=== PATIENT | female | born 1980 ===

== ENCOUNTER 2016-12-17 21:34 | Emergency (ER) | payer MEDICAID ==
[2016-12-17 21:44] VITALS: BP 126/56; PULSE 82; RESP 18; TEMP 97.7; O2SAT 100
--- NOTE | 2016-12-17 23:15 | ED PDOC ---
HPI: Female Pain Time Seen by Provider: 12/17/16 21:47 Chief Complaint (Nursing): Female Genitourinary Chief Complaint (Provider): burning on urination x 2 days, lower back pain, bilateral History Per: Patient History/Exam Limitations: no limitations Onset/Duration Of Symptoms: Days Current Symptoms Are (Timing): Still Present Severity: Moderate Pain Scale Rating Of: 5 Quality Of Discomfort: Dull (Back ), Burning Associated Symptoms: denies: Fever, Chills, Nausea, Vomiting Alleviating Factors: None Additional Complaint(s): denies fever. Past Medical History Reviewed: Historical Data, Nursing Documentation, Vital Signs Vital Signs: Last Vital Signs Temp 97.7 F 12/17/16 21:39 Pulse 82 12/17/16 21:39 Resp 18 12/17/16 21:39 BP 126/56 L 12/17/16 21:39 Pulse Ox 100 12/17/16 21:39 - Medical History PMH: No Chronic Diseases - Surgical History Surgical History: No Surg Hx - Family History Family History: States: Unknown Family Hx - Living Arrangements Living Arrangements: With Family - Social History Current smoker - smoking cessation education provided: No Alcohol: None Drugs: Denies - Home Medications Home Medications: Ambulatory Orders Medication Instructions Recorded Erythromycin 0.5% [Erythromycin] 1 applic [employer] Q6 #1 tube 08/07/16 Ciprofloxacin [Cipro] 500 mg PO BID #10 tab 12/17/16 - Allergies Allergies/Adverse Reactions: Allergies Allergy/AdvReac Type Severity Reaction Status Date / Time No Known Allergies Allergy Verified 12/23/14 19:27 Review of Systems ROS Statement: Except As Marked, All Systems Reviewed And Found Negative Constitutional: Negative for: Fever, Chills Gastrointestinal: Negative for: Nausea, Vomiting Genitourinary Female: Positive for: Dysuria Physical Exam - Reviewed Nursing Documentation Reviewed: Yes Vital Signs Reviewed: Yes - Physical Exam Appears: Positive for: Well, Non-toxic, No Acute Distress Head Exam: Positive for: ATRAUMATIC, NORMAL INSPECTION, NORMOCEPHALIC Skin: Positive for: Normal Color, Warm, DRY Eye Exam: Positive for: Normal appearance ENT: Positive for: Normal ENT Inspection Neck: Positive for: Normal, Painless ROM Cardiovascular/Chest: Positive for: Regular Rate, Rhythm Respiratory: Positive for: CNT, Normal Breath Sounds Gastrointestinal/Abdominal: Positive for: Normal Exam, Bowel Sounds, Soft. Negative for: Tenderness Back: Positive for: Normal Inspection. Negative for: L CVA Tenderness, R CVA Tenderness Extremity: Positive for: Normal ROM Neurologic/Psych: Positive for: Alert, Oriented - ECG O2 Sat by Pulse Oximetry: 100 Medical Decision Making Medical Decision Making: (+) leuks Disposition - Clinical Impression Clinical Impression: UTI (urinary tract infection) - Patient ED Disposition Is Patient to be Admitted: No - Disposition Disposition: Routine/Home Disposition Time: 23:16 Condition: STABLE Prescriptions: Ciprofloxacin [Cipro] 500 mg PO BID #10 tab Instructions: Urinary Tract Infection in Women (ED)
== END 2016-12-17 23:15 | disposition home or self-care (01) ==
LOC: H.ER 21:34
DX: N39.0 Urinary tract infection, site not specified (principal)

== ENCOUNTER 2017-03-29 21:47 | Emergency (ER) | payer MEDICAID ==
[2017-03-29 22:00] VITALS: BP 105/65; PULSE 76; RESP 18; TEMP 96.7; O2SAT 99
--- NOTE | 2017-03-29 22:04 | ED PDOC ---
HPI: Female Pain Time Seen by Provider: 03/29/17 22:01 Chief Complaint (Nursing): Female Genitourinary Chief Complaint (Provider): dysuria History Per: Patient Additional Complaint(s): 36-year-old female presents to emergency Department with dysuria and frequency 3 days. No abdominal or back pain, no fever or chills. Patient has been taking cranberry pills and tylenol which has helped somewhat. No vaginal discharge or vaginal bleeding. Patient denies concern for STD. Past Medical History Reviewed: Historical Data, Nursing Documentation, Vital Signs Vital Signs: Last Vital Signs Temp 96.7 F L 03/29/17 21:57 Pulse 76 03/29/17 21:57 Resp 18 03/29/17 21:57 BP 105/65 03/29/17 21:57 Pulse Ox 99 03/29/17 21:57 - Medical History PMH: No Chronic Diseases - Surgical History Surgical History: No Surg Hx - Family History Family History: States: No Known Family Hx - Living Arrangements Living Arrangements: With Family - Social History Current smoker - smoking cessation education provided: No Alcohol: None Drugs: Denies - Home Medications Home Medications: Ambulatory Orders Medication Instructions Recorded Erythromycin 0.5% [Erythromycin] 1 applic [employer]EYE Q6 #1 tube 08/07/16 Ciprofloxacin [Cipro] 500 mg PO BID #10 tab 12/17/16 Nitrofurantoin Macrocrystals 100 mg PO BID #14 cap 03/29/17 [Macrobid] - Allergies Allergies/Adverse Reactions: Allergies Allergy/AdvReac Type Severity Reaction Status Date / Time No Known Allergies Allergy Verified 12/23/14 19:27 Review of Systems ROS Statement: Except As Marked, All Systems Reviewed And Found Negative Constitutional: Negative for: Fever, Chills Gastrointestinal: Negative for: Abdominal Pain Genitourinary Female: Positive for: Dysuria, Frequency, Incontinence. Negative for: Hematuria, Vaginal Discharge, Vaginal Bleeding, Pelvic Pain Musculoskeletal: Negative for: Back Pain Physical Exam - Reviewed Nursing Documentation Reviewed: Yes Vital Signs Reviewed: Yes - Physical Exam Appears: Positive for: Well, Non-toxic, No Acute Distress Skin: Negative for: Rash Eye Exam: Positive for: Normal appearance Cardiovascular/Chest: Positive for: Regular Rate, Rhythm Respiratory: Positive for: Normal Breath Sounds Gastrointestinal/Abdominal: Positive for: Soft. Negative for: Tenderness, Distended, Guarding, Rebound Back: Positive for: Normal Inspection. Negative for: L CVA Tenderness, R CVA Tenderness, Vertebral Tenderness Extremity: Positive for: Normal ROM Neurologic/Psych: Positive for: Alert, Oriented - Laboratory Results Urine POC: Negative Urine dip results: Positive for: Leukocyte Esterase (small). Negative for: Blood, Nitrate, Ketones, Glucose, Bilirubin, Protein - ECG O2 Sat by Pulse Oximetry: 99 Pulse Ox Interpretation: Normal Medical Decision Making Medical Decision Makin36 year old with dysuria and frequency Plan: Urine dip Urine test Urine culture UTI noted, initial dose macrobid given in ED along with rx for same. Patient advised to drink plenty of fluids and follow up with PMD in 2-3 days. Disposition - Clinical Impression Clinical Impression: Urinary tract infection - Patient ED Disposition Is Patient to be Admitted: No Counseled Patient/Family Regarding: Studies Performed, Diagnosis, Need For Followup, Rx Given - Disposition Referrals: [facility] [Outside] Disposition: Routine/Home Disposition Time: 22:13 Condition: STABLE Additional Instructions: Take rx meds as directed. Drink plenty of fluids. Follow up with primary care doctor or clinic in 2-3 days. Prescriptions: Nitrofurantoin Macrocrystals [Macrobid] 100 mg PO BID #14 cap Instructions: Urinary Tract Infection in Women (ED) Forms: [employer] (Armenian)
== END 2017-03-29 23:46 | disposition home or self-care (01) ==
LOC: H.ER 21:47
DX: N39.0 Urinary tract infection, site not specified (principal)

== ENCOUNTER 2017-08-18 16:42 | Emergency (ER) | payer MEDICAID ==
[2017-08-18 16:57] VITALS: BP 100/58; PULSE 87; RESP 16; TEMP 98.2; O2SAT 99
--- NOTE | 2017-08-18 18:07 | ED PDOC ---
HPI: Back Time Seen by Provider: 08/18/17 17:12 Chief Complaint (Nursing): Female Genitourinary Chief Complaint (Provider): Female Genitourinary and Lower Back Pain History Per: Patient History/Exam Limitations: no limitations Onset/Duration Of Symptoms: Days (x4) Current Symptoms Are (Timing): Still Present Additional Complaint(s): 37 year of female with a past medical history of UTIs, who presents to the ED complaining of lower back pain and urinary problems x4 days. States her back pain began 4 days ago, but her urinary symptoms began yesterday. States she has dysuria and small amounts of blood in her urine. States she has taken nothing for pain. Denies fever or vomit. Reports being sexually active. PMD: None provided Past Medical History Reviewed: Historical Data, Nursing Documentation, Vital Signs Vital Signs: Last Vital Signs Temp 98.2 F 08/18/17 16:55 Pulse 87 08/18/17 16:55 Resp 16 08/18/17 16:55 BP 100/58 L 08/18/17 16:55 Pulse Ox 99 08/18/17 16:55 - Medical History Other PMH: UTI - Surgical History Surgical History: No Surg Hx - Family History Family History: States: Unknown Family Hx - Home Medications Home Medications: Ambulatory Orders Medication Instructions Recorded Erythromycin 0.5% [Erythromycin] 1 applic [employer]YE Q6 #1 tube 08/07/16 Ciprofloxacin [Cipro] 500 mg PO BID #10 tab 12/17/16 Nitrofurantoin Macrocrystals 100 mg PO BID #14 cap 03/29/17 [Macrobid] - Allergies Allergies/Adverse Reactions: Allergies Allergy/AdvReac Type Severity Reaction Status Date / Time No Known Allergies Allergy Verified 12/23/14 19:27 Review of Systems ROS Statement: Except As Marked, All Systems Reviewed And Found Negative Constitutional: Negative for: Fever, Chills Gastrointestinal: Negative for: Vomiting Genitourinary Female: Positive for: Dysuria, Hematuria Musculoskeletal: Positive for: Back Pain Physical Exam - Reviewed Nursing Documentation Reviewed: Yes Vital Signs Reviewed: Yes - Physical Exam Appears: Positive for: Non-toxic, No Acute Distress Head Exam: Positive for: ATRAUMATIC, NORMAL INSPECTION, NORMOCEPHALIC Skin: Positive for: Normal Color, Warm, Dry. Negative for: Rash Eye Exam: Positive for: EOMI, Normal appearance, PERRL Neck: Positive for: Normal, Painless ROM, Supple Cardiovascular/Chest: Positive for: Regular Rate, Rhythm. Negative for: Murmur Respiratory: Positive for: Normal Breath Sounds. Negative for: Respiratory Distress Gastrointestinal/Abdominal: Positive for: Tenderness (mild suprapubic tenderness ) Back: Positive for: Normal Inspection. Negative for: L CVA Tenderness, R CVA Tenderness, Vertebral Tenderness Extremity: Positive for: Normal ROM. Negative for: Pedal Edema, Deformity Neurologic/Psych: Positive for: Alert, Oriented (x3). Negative for: Motor/ Sensory Deficits - ECG O2 Sat by Pulse Oximetry: 99 (RA) Pulse Ox Interpretation: Normal Medical Decision Making Medical Decision Making: Time: 17 Initial Impression: UTI, cystitis Initial Plan: --ED test --Reevaluation --Patient will be discharged with Macrobid and advised to follow up with PMD. Scribe Attestation: Documented by Indra Garcia, acting as a scribe for Danette Santana MD. Provider Scribe Attestation: All medical record entries made by the Scribe were at my direction and personally dictated by me. I have reviewed the chart and agree that the record accurately reflects my personal performance of the history, physical exam, medical decision making, and the department course for this patient. I have also personally directed, reviewed, and agree with the discharge instructions and disposition. Disposition - Clinical Impression Clinical Impression: Low back pain, Urinary tract infection - Patient ED Disposition Is Patient to be Admitted: No Counseled Patient/Family Regarding: Studies Performed, Diagnosis, Need For Followup, Rx Given - Disposition Referrals: [facility] [Outside] Disposition: Routine/Home Disposition Time: 17:30 Condition: GOOD Additional Instructions: Take motrin for back pain. Take macrobid for 7 days./ Follow up w3ith your PCP in 2-3 days. Instructions: Urinary Tract Infections in Adults
== END 2017-08-18 19:04 | disposition home or self-care (01) ==
LOC: H.ER 16:42
DX: M54.5 Low back pain (principal); N39.0 Urinary tract infection, site not specified

== ENCOUNTER 2018-01-02 20:05 | Emergency (ER) | payer MEDICAID ==
[2018-01-02 20:27] VITALS: BP 102/60; PULSE 77; RESP 17; TEMP 98.6; O2SAT 99
[2018-01-02 21:19] LABS: BASO % 0.3 % (0.0-2.0); EOS # 0.1 K/uL (0.0-0.7); EOS % 0.6 % (0.0-4.0); HEMOGLOBIN 13.8 g/dL (12.0-16.0); LYMPH # 2.1 K/uL (1.0-4.3); LYMPH % 21.6 % (20.0-40.0); MEAN CELL VOLUME 90.5 fl (81.0-99.0); MEAN CORPUSCULAR HEMOGLOBIN 30.4 pg (27.0-31.0); MEAN CORPUSCULAR HGB CONC 33.6 g/dL (33.0-37.0); MONO # 0.9 K/uL (0.0-0.8); MONO % 8.7 % (0.0-10.0); NEUT # 6.7 K/uL (1.8-7.0); NEUT % 68.8 % (50.0-75.0); RBC 4.54 Mil/uL (3.80-5.20); WHITE BLOOD COUNT 9.8 K/uL (4.8-10.8)
[2018-01-02 21:28] LABS: ALB/GLOB RATIO 1.4 (1.0-2.1); ALBUMIN 4.5 g/dL (3.5-5.0); ALT/SGPT 36 U/L (9-52); AST/SGOT 32 U/L (14-36); BLOOD UREA NITROGEN 14 mg/dl (7-17); CALCIUM 9.8 mg/dL (8.4-10.2); GFR AFRICAN-AMERICAN > 60; GFR NON-AFRICAN AMERICAN > 60
--- NOTE | 2018-01-02 21:33 | ED PDOC ---
HPI: Chest Pain Time Seen by Provider: 01/02/18 20:34 Chief Complaint (Nursing): Chest Pain Chief Complaint (Provider): Chest pain History Per: Patient History/Exam Limitations: no limitations Onset/Duration Of Symptoms: Days (2) Current Symptoms Are (Timing): Still Present Quality: "Pain" Additional History Per: Patient Additional Complaint(s): 37yo female, no known past medical history, comes to ER with complaints of acute onset left sided chest pain, radiating to her left arm, x 2 days. Patient denies any associated nausea, vomiting, diarrhea, or diaphoresis. Patient states the pain is worse with inspiration and at times, she has shortness of breath as well. Otherwise, she offers no other medical complaints PMD: Bert Olsen Past Medical History Reviewed: Historical Data, Nursing Documentation, Vital Signs Vital Signs: Last Vital Signs Temp 98.6 F 01/02/18 20:19 Pulse 77 01/03/18 00:01 Resp 17 01/02/18 20:19 BP 102/60 01/02/18 20:19 Pulse Ox 99 01/03/18 00:01 - Medical History PMH: No Chronic Diseases - Surgical History Surgical History: No Surg Hx - Family History Family History: States: Unknown Family Hx - Home Medications Home Medications: Ambulatory Orders Medication Instructions Recorded Erythromycin 0.5% [Erythromycin] 1 applic [employer] Q6 #1 tube 08/07/16 Ciprofloxacin [Cipro] 500 mg PO BID #10 tab 12/17/16 Nitrofurantoin Macrocrystals 100 mg PO BID #14 cap 03/29/17 [Macrobid] Nitrofurantoin Macrocrystals 100 mg PO BID #14 cap 08/18/17 [Macrobid] Naproxen [Naprosyn] 500 mg PO Q12 #14 tab 01/02/18 - Allergies Allergies/Adverse Reactions: Allergies Allergy/AdvReac Type Severity Reaction Status Date / Time No Known Allergies Allergy Verified 12/23/14 19:27 Review of Systems ROS Statement: Except As Marked, All Systems Reviewed And Found Negative Constitutional: Negative for: Fever, Chills Cardiovascular: Positive for: Chest Pain Respiratory: Positive for: Shortness of Breath Musculoskeletal: Positive for: Arm Pain (left arm pain) Neurological: Negative for: Weakness, Numbness Physical Exam - Reviewed Nursing Documentation Reviewed: Yes Vital Signs Reviewed: Yes - Physical Exam Appears: Positive for: Well, Non-toxic, No Acute Distress Head Exam: Positive for: ATRAUMATIC, NORMAL INSPECTION, NORMOCEPHALIC Skin: Positive for: Normal Color Eye Exam: Positive for: Normal appearance Neck: Positive for: Normal, Supple Cardiovascular/Chest: Positive for: Regular Rate, Rhythm, Chest Non Tender Respiratory: Positive for: Normal Breath Sounds Gastrointestinal/Abdominal: Positive for: Normal Exam, Soft. Negative for: Tenderness Back: Positive for: Normal Inspection Extremity: Positive for: Normal ROM. Negative for: Pedal Edema Neurologic/Psych: Positive for: Alert, Oriented. Negative for: Motor/Sensory Deficits - Laboratory Results Result Diagrams: 01/02/18 21:13 01/02/18 21:13 - ECG ECG: Positive for: Interpreted By Me, Viewed By Me ECG Rhythm: Positive for: Normal QRS, Normal ST Segment, Sinus Rhythm Rate: 77 (@ 20:32) O2 Sat by Pulse Oximetry: 99 (RA) Pulse Ox Interpretation: Normal Medical Decision Making Medical Decision Making: Impression: 37yo female with chest pain Plan: -- Labs -- EKG -- Chest x-ray -- Toradol 15mg IVP CT chest angio ordered due to elevated D Dimer levels. 23:45 CT Chest FINDINGS: Pulmonary arteries: Unremarkable. No filling defects are appreciated within the pulmonary arteries to suggest the presence of pulmonary emboli. Aorta: No acute findings. No thoracic aortic aneurysm. Lungs: Mild bibasilar dependent change/atelectasis. No mass. Pleural space: Unremarkable. No significant effusion. No pneumothorax. Heart: Unremarkable. No cardiomegaly. No significant pericardial effusion. No evidence of RV dysfunction. Bones/joints: No acute fracture. No dislocation. Soft tissues: Unremarkable. Lymph nodes: Unremarkable. No enlarged lymph nodes. IMPRESSION: No filling defects are appreciated within the pulmonary arteries to suggest the presence of pulmonary emboli. 00:00 --Patient reports improvement of symptoms and is stable for discharge. Diagnosis is pleuritic chest pain. Scribe Attestation: Documented by Martha Sigala, acting as a scribe for Gerardo Damon MD. Provider Scribe Attestation: All medical record entries made by the Scribe were at my direction and personally dictated by me. I have reviewed the chart and agree that the record accurately reflects my personal performance of the history, physical exam, medical decision making, and the department course for this patient. I have also personally directed, reviewed, and agree with the discharge instructions and disposition. Disposition - Clinical Impression Clinical Impression: Pleuritic chest pain - Patient ED Disposition Is Patient to be Admitted: No Counseled Patient/Family Regarding: Studies Performed, Diagnosis, Need For Followup, Rx Given - Disposition Disposition: Routine/Home Disposition Time: 00:00 Condition: STABLE Additional Instructions: ROSENDO MARTINEZ, thank you for letting us take care of you today. Your provider was Gerardo Damon MD and you were treated for ABD PAIN. The emergency medical care you received today was directed at your acute symptoms. If you were prescribed any medication, please fill it and take as directed. It may take several days for your symptoms to resolve. Return to the Emergency Department if your symptoms worsen, do not improve, or if you have any other problems. Please contact your doctor or call one of the physicians/clinics you have been referred to that are listed on the Patient Visit Information form that is included in your discharge packet. Bring any paperwork you were given at discharge with you along with any medications you are taking to your follow up visit. Our treatment cannot replace ongoing medical care by a primary care provider outside of the emergency department. Thank you for allowing the [facility] team to be part of your care today. If you had an X-Ray or CT scan: A Radiologist will review the ED reading if any change in treatment is needed we will contact you. If you had a blood, urine, or wound culture: It will take several days for the results, if any change in treatment is needed we will contact you. If you had an STI test: It will take 48 hours for the results. Please call after 1 week if you have not heard back. Prescriptions: Naproxen [Naprosyn] 500 mg PO Q12 #14 tab Instructions: Pleuritic Chest Pain Forms: [employer] (Botswanan) Print Language: TURKISH
[2018-01-02] MEDS ORDERED: Iodixanol 320 MG/ML 100 ML BOTTLE IV ONE (22:41)
--- NOTE | 2018-01-03 09:47 | CT ---
Date of service: 01/02/2018 PROCEDURE: CT Chest with contrast (Pulmonary Angiogram) HISTORY: chest pain r/o PE COMPARISON: None available. TECHNIQUE: Axial computed tomography images were obtained of the chest in the pulmonary arterial phase of enhancement. Coronal and sagittal reformatted images were created and reviewed. Maximum intensity projection (MIP) reconstructed images in the following planes: Axial only. Intravenous contrast dose: 80 cc Visipaque 320. Mean Hounsfield unit values in the main pulmonary artery: 391.28 Radiation dose: Total exam DLP = 244.76 mGy-cm. This CT exam was performed using one or more of the following dose reduction techniques: Automated exposure control, adjustment of the mA and/or kV according to patient size, and/or use of iterative reconstruction technique. FINDINGS: PULMONARY ARTERIES: Unremarkable. No pulmonary embolism. AORTA: No acute findings. No thoracic aortic aneurysm. LUNGS: Unremarkable. No nodule, mass or pulmonary consolidation. PLEURAL SPACES: Unremarkable. No effusion or pneumothorax. HEART: Unremarkable. No cardiomegaly. No significant pericardial effusion. LYMPH NODES: No lymphadenopathy. BONES, CHEST WALL: Unremarkable. No fracture or destructive lesion Concordant results (preliminary interpretation) provided by [employer]. Procedure Completed: 22:57. Preliminary ([employer]) Report: Dictated and Authenticated: 23:48. Final Interpretation: 09:46. January 03, 2018. OTHER FINDINGS: Unremarkable. IMPRESSION: Unremarkable CT pulmonary angiogram. No pulmonary embolus.
--- NOTE | 2018-01-03 10:37 | RAD ---
Date of service: 01/02/2018 HISTORY: chest pain COMPARISON: No prior. TECHNIQUE: Chest PA and lateral FINDINGS: LUNGS: No active pulmonary disease. PLEURA: No significant pleural effusion identified. No pneumothorax apparent. CARDIOVASCULAR: Normal. OSSEOUS STRUCTURES: No significant abnormalities. VISUALIZED UPPER ABDOMEN: Normal. OTHER FINDINGS: None. IMPRESSION: No acute cardiopulmonary disease appreciated.
--- NOTE | 2018-01-03 12:33 | CARD ---
APPROVED REPORT Date of service: 01/02/2018 EKG Measurement Heart [id number] [id number] [id number] <Conclusion> Normal sinus rhythm Normal ECG
== END 2018-01-03 00:25 | disposition home or self-care (01) ==
LOC: H.ER 20:05
DX: R07.81 Pleurodynia (principal)
CPT/HCPCS: 71046; 71275; 80053; 81025; 84484; 85025; 85378; 93005; 96374; 99283; J1885; Q9967

== ENCOUNTER 2018-07-12 19:56 | Emergency (ER) | payer MEDICAID ==
[2018-07-12 20:07] VITALS: RESP 16
[2018-07-12] MEDS ORDERED: guaiFENesin 200 mg/10 ml Syrup UD PO STA (20:25)
[2018-07-12] MEDS ORDERED: guaiFENesin 100 mg/5 ml Syrup UD ONE (20:47)
--- NOTE | 2018-07-12 20:52 | ED PDOC ---
HPI: Influenza Time Seen by Provider: 07/12/18 20:08 Chief Complaint: Flu-like Symptoms Chief Complaint (Provider): Flu-like Symptoms History Per: Patient Exam Limitations: no limitations Have you had recent travel within the past 21 days to any of: No Onset/Duration Of Symptoms: Days (x5), Worse Since (x2) Sick Contacts (Context): None Additional complaint(s):: Patient is a 38 y/o female with no significant past medical history who presents to the ED for evaluation of body aches for the past five days associated with a tactile fever, congestion, chills, bilateral ear pressure, cough, and throat pain ongoing x1.5 days. Patient states she did not take her temperature but felt warm. Patient reports she took 500mg of Tylenol at 16:00. Patient denies recent travel, sick contacts, N/V/D, chest pain, abdominal pain, rash, and urinary symptoms. PCP: Dr. Bert Olsen LMP: Now Past Medical History Reviewed: Historical Data, Nursing Documentation, Vital Signs Vital Signs: Last Vital Signs Temp 98 F 07/12/18 20:04 Pulse 90 07/12/18 20:04 Resp 16 07/12/18 20:04 BP 97/65 L 07/12/18 20:04 Pulse Ox 99 07/12/18 20:04 - Medical History PMH: No Chronic Diseases - Surgical History Surgical History: No Surg Hx - Family History Family History: States: Unknown Family Hx - Home Medications Home Medications: Ambulatory Orders Medication Instructions Recorded RX: Erythromycin 0.5% 1 applic RIGHTEYE Q6 #1 tube 08/07/16 [Erythromycin] Ciprofloxacin [Cipro] 500 mg PO BID #10 tab 12/17/16 Nitrofurantoin Macrocrystals 100 mg PO BID #14 cap 03/29/17 [Macrobid] Nitrofurantoin Macrocrystals 100 mg PO BID #14 cap 08/18/17 [Macrobid] Naproxen [Naprosyn] 500 mg PO Q12 #14 tab 01/02/18 Acetaminophen [Acetaminophen 8 650 mg PO Q8 PRN #21 tablet.er 07/12/18 Hour] Oseltamivir Phosphate [Tamiflu] 75 mg PO BID #10 capsule 07/12/18 Phenylephrine HCl/Prometh HCl 5 ml PO Q6 PRN #150 ml 07/12/18 [Promethazine-Phenylephrine Syr] RX: Ibuprofen [Motrin Tab] 600 mg PO Q6 PRN #20 tab 07/12/18 - Allergies Allergies/Adverse Reactions: Allergies Allergy/AdvReac Type Severity Reaction Status Date / Time No Known Allergies Allergy Verified 07/12/18 20:03 Review of Systems ROS Statement: Except As Marked, All Systems Reviewed And Found Negative Constitutional: Positive for: Fever (tactile), Chills, Other (body aches) ENT: Positive for: Ear Pain (bilateral pressure), Nose Congestion, Throat Pain Cardiovascular: Negative for: Chest Pain Respiratory: Positive for: Cough Gastrointestinal: Negative for: Nausea, Vomiting, Abdominal Pain, Diarrhea Genitourinary Female: Negative for: Dysuria, Hematuria Skin: Negative for: Rash Physical Exam - Reviewed Nursing Documentation Reviewed: Yes Vital Signs Reviewed: Yes - Physical Exam Comments: GENERAL APPEARANCE: Patient is awake, alert, oriented x 3, in no acute distress. Resting comfortably, on cell phone. SKIN: Warm, dry; (-) cyanosis. EYES: (-) conjunctival pallor, (-) scleral icterus. ENMT: Mucous membranes moist. TM: (-) bulging, (-) erythema. Pharynx: clear, uvula midline (+) mild erythema, (-) exudates (+)2+ tonsilar hypertrophy. (-) sinus tenderness. NECK: Supple, FROM (-) tenderness, (-) stiffness, (-) lymphadenopathy. CHEST AND RESPIRATORY: (-) rales, (-) rhonchi, (-) wheezes; breath sounds equal bilaterally. Respirations even and nonlabored. HEART AND CARDIOVASCULAR: (-) irregularity ABDOMEN AND GI: Soft (-) distention (-) tenderness (-) guarding, (-) rebound EXTREMITIES: (-) deformity NEURO AND PSYCH: Mental status as above; (-) focal findings. Gait: steady. Speech: clear. (-) facial asymmetry (-) aphasia. Pupils equal and reactive. EOMI and painless. Medical Decision Making Medical Decision Making: Time: 2024 Impression: Body aches, cough, congestion, and throat pain; likely viral syndrome Plan: Chest Two Views (PA/Lat) [Rad] Motrin Tab 600 mg PO Robitussin 200 mg PO Throat Culture Influenza A B Rapid Strep Group A Antigen Re-evaluation 2200 Rapid Strep: negative Flu: (+) . Tamiflu 100mg PO ordered. CXR: no acute disease as read by Gal FULLER On re-evaluation, patient reports improvement of symptoms. On exam, patient remains AAOx3, in no acute distress. Vitals stable. Lab/Diagnostic results d/w the patient in great detail. Diagnosis of body aches, cough, throat pain, influenza d/w the patient. Based on history, exam and diagnostic results, plan will be for outpatient follow up with PMD. Patient instructed to follow-up with pmd / referral provided / the clinic in 1- 2 days without fail. Advised to take medication as prescribed. Return to the emergency room at any time for any new or worsening symptoms. Patient states she fully agrees with and understands discharge instructions. States that she agrees with the plan and disposition. Verbalized and repeated discharge instructions and plan. I have given the patient opportunity to ask any additional questions. Scribe Attestation: Documented by Chintan Bush, acting as a scribe for KARLA Humphreys. Provider Scribe Attestation: All medical record entries made by the Scribe were at my direction and personally dictated by me. I have reviewed the chart and agree that the record accurately reflects my personal performance of the history, physical exam, medical decision making, and the department course for this patient. I have also personally directed, reviewed, and agree with the discharge instructions and disposition. - ECG O2 Sat by Pulse Oximetry: 99 (RA) Pulse Ox Interpretation: Normal Disposition - Clinical Impression Clinical Impression: Influenza, Cough, Throat pain, Body aches, Nasal congestion - Patient ED Disposition Is Patient to be Admitted: No Counseled Patient/Family Regarding: Studies Performed, Diagnosis, Need For Followup, Rx Given - Disposition Referrals: Bert Olsen MD [Medical Doctor] - Disposition: Routine/Home Disposition Time: 22:00 Condition: STABLE Additional Instructions: The emergency medical care you received today was directed at your acute symptoms. If you were prescribed any medication, please fill it and take as directed. It may take several days for your symptoms to resolve. Return to the Emergency Department if your symptoms worsen, do not improve, or if you have any other problems. Please contact your doctor in 2 days for re-evaluation and follow up / or call one of the physicians/clinics you have been referred to that are listed on the Patient Visit Information form that is included in your discharge packet. Bring any paperwork you were given at discharge with you along with any medications you are taking to your follow up visit. Our treatment cannot replace ongoing medical care by a primary care provider (PCP) outside of the emergency department. Prescriptions: Acetaminophen [Acetaminophen 8 Hour] 650 mg PO Q8 PRN #21 tablet.er PRN Reason: Pain, Moderate (4-7) RX: Ibuprofen [Motrin Tab] 600 mg PO Q6 PRN #20 tab PRN Reason: Pain, Moderate (4-7) Oseltamivir Phosphate [Tamiflu] 75 mg PO BID #10 capsule Phenylephrine HCl/Prometh HCl [Promethazine-Phenylephrine Syr] 5 ml PO Q6 PRN #150 ml PRN Reason: Cough Instructions: Flu, Cough in Adults, Sore Throat, Adult (DC), Muscle and Bone Pain (DC), When to Worry About a Fever Forms: [employer] (Kinyarwanda) Print Language: KOSOVAN - POA Present On Arrival: None Results - Lab Results Lab Results: 07/12/18 07/12/18 20:54 20:54 Influenza Typ A,B (EIA) Pos for influenza b H Grp A Beta Strep Ag Negative
[2018-07-12] MEDS ORDERED: guaiFENesin 100 mg/5 ml Syrup UD PO STA (21:39)
[2018-07-12 23:41] VITALS: BP 110/78; PULSE 92; TEMP 98.2; O2SAT 98
--- NOTE | 2018-07-13 12:47 | RAD ---
Date of service: 07/12/2018 HISTORY: cough, fever COMPARISON: Comparison chest dated 01/02/2018. TECHNIQUE: Chest PA and lateral FINDINGS: LUNGS: The interstitial markings are slightly increased and coarsened with scattered peribronchial cuffing changes.; Rule out sequela of reactive/inflammatory airway disease or viral illness. Additionally, there are linear atelectatic changes seen in the left anterior lung base as well. PLEURA: No significant pleural effusion identified. No pneumothorax apparent. CARDIOVASCULAR: No aortic atherosclerotic calcification present. Normal cardiac size. No pulmonary vascular congestion. OSSEOUS STRUCTURES: No significant abnormalities. VISUALIZED UPPER ABDOMEN: Normal. OTHER FINDINGS: None. IMPRESSION: The interstitial markings are slightly increased and coarsened with scattered peribronchial cuffing changes.; Rule out sequela of reactive/inflammatory airway disease or viral illness. Additionally, there are linear atelectatic changes seen in the left anterior lung base as well.
== END 2018-07-12 23:40 | disposition home or self-care (01) ==
LOC: H.ER 19:56
DX: J11.1 Influenza due to unidentified influenza virus with other respiratory manifestations (principal)

== ENCOUNTER 2018-07-18 17:05 | Emergency (ER) | payer MEDICAID ==
[2018-07-18 17:14] VITALS: RESP 16
--- NOTE | 2018-07-18 17:42 | ED PDOC ---
HPI: Chest Pain Time Seen by Provider: 07/18/18 17:18 Chief Complaint (Nursing): Chest Pain Chief Complaint (Provider): Chest pain History Per: Patient History/Exam Limitations: no limitations Onset/Duration Of Symptoms: Days Current Symptoms Are (Timing): Still Present Additional History Per: Patient Additional Complaint(s): 38yo female, comes to ER complaining of intermittent, sharp chest pain as well as bilateral arm pain x 2 weeks. Patient states she was recently diagnosed with influenza and has been compliant with her Tamiflu. She states the chest pain is worse with coughing. Otherwise, denies any fever, shortness of breath and has no additional complaints. PMD: Dr. Olsen Past Medical History Reviewed: Historical Data, Nursing Documentation, Vital Signs Vital Signs: Last Vital Signs Temp 98.1 F 07/18/18 17:14 Pulse 85 07/18/18 17:14 Resp 16 07/18/18 17:14 BP 112/68 07/18/18 17:14 Pulse Ox 98 07/18/18 17:14 - Medical History PMH: No Chronic Diseases - Surgical History Surgical History: No Surg Hx - Family History Family History: States: No Known Family Hx - Home Medications Home Medications: Ambulatory Orders Medication Instructions Recorded Erythromycin 0.5% [Erythromycin] 1 applic RIGHTEYE Q6 #1 tube 08/07/16 Ciprofloxacin [Cipro] 500 mg PO BID #10 tab 12/17/16 Nitrofurantoin Macrocrystals 100 mg PO BID #14 cap 03/29/17 [Macrobid] Nitrofurantoin Macrocrystals 100 mg PO BID #14 cap 08/18/17 [Macrobid] Naproxen [Naprosyn] 500 mg PO Q12 #14 tab 01/02/18 Acetaminophen [Acetaminophen 8 650 mg PO Q8 PRN #21 tablet.er 07/12/18 Hour] Ibuprofen [Motrin Tab] 600 mg PO Q6 PRN #20 tab 07/12/18 Oseltamivir Phosphate [Tamiflu] 75 mg PO BID #10 capsule 07/12/18 Phenylephrine HCl/Prometh HCl 5 ml PO Q6 PRN #150 ml 07/12/18 [Promethazine-Phenylephrine Syr] Benzonatate [Tessalon Perle] 100 mg PO Q8 #10 capsule 07/18/18 Naproxen [Naprosyn] 500 mg PO Q12H #20 tab 07/18/18 - Allergies Allergies/Adverse Reactions: Allergies Allergy/AdvReac Type Severity Reaction Status Date / Time No Known Allergies Allergy Verified 07/18/18 17:10 Review of Systems ROS Statement: Except As Marked, All Systems Reviewed And Found Negative Constitutional: Negative for: Fever, Chills Cardiovascular: Positive for: Chest Pain Respiratory: Positive for: Cough. Negative for: Shortness of Breath Musculoskeletal: Positive for: Arm Pain Physical Exam - Reviewed Nursing Documentation Reviewed: Yes Vital Signs Reviewed: Yes - Physical Exam Appears: Positive for: Non-toxic, No Acute Distress Head Exam: Positive for: ATRAUMATIC, NORMAL INSPECTION, NORMOCEPHALIC Skin: Positive for: Normal Color, Warm, DRY Eye Exam: Positive for: Normal appearance Neck: Positive for: Normal, Painless ROM Cardiovascular/Chest: Positive for: Regular Rate, Rhythm, Chest Non Tender Respiratory: Positive for: Normal Breath Sounds. Negative for: Rales, Rhonchi, Wheezing Gastrointestinal/Abdominal: Positive for: Normal Exam, Soft Back: Positive for: Normal Inspection Extremity: Positive for: Normal ROM Neurologic/Psych: Positive for: Alert, Oriented - ECG ECG: Positive for: Interpreted By Me, Viewed By Me ECG Rhythm: Positive for: Sinus Rhythm O2 Sat by Pulse Oximetry: 98 Medical Decision Making Medical Decision Making: Impression: 38yo female with likely pleuritic chest pain Plan: -- Toradol 30mg IVP -- Chest x-ray -- EKG -- Troponin I 1818 Chest x-ray reviewed and shows no active disease. 1854 Patient informed of Chest x-ray findings. On reassessment, she reports improvement of chest pain with toradol. patient stable for discharge home, given instructions to follow up with PMD in 2-3 days. Scribe Attestation: Documented by Martha Sigala acting as a scribe for Anton Wills MD. Provider Attestation: All medical record entries made by the Scribe were at my direction and personally dictated by me. I have reviewed the chart and agree that the record accurately reflects my personal performance of the history, physical exam, medical decision making, and the department course for this patient. I have also personally directed, reviewed, and agree with the discharge instructions and disposition. Disposition - Clinical Impression Clinical Impression: Pleuritic chest pain - Patient ED Disposition Is Patient to be Admitted: No - Disposition Referrals: [facility] [Outside] Disposition: Routine/Home Disposition Time: 18:57 Condition: FAIR Prescriptions: Benzonatate [Tessalon Perle] 100 mg PO Q8 #10 capsule Naproxen [Naprosyn] 500 mg PO Q12H #20 tab Instructions: Pleuritic Chest Pain Forms: [facility] (Macedonian)
--- NOTE | 2018-07-18 18:50 | RAD ---
Date of service: 07/18/2018 HISTORY: Chest pain COMPARISON: 07/12/2018. TECHNIQUE: Chest PA and lateral FINDINGS: LINES AND TUBES: None. LUNG AND PLEURA: The lungs are well inflated and clear. No pleural effusion or pneumothorax. HEART AND MEDIASTINUM: The heart is not enlarged. No aortic atherosclerotic calcifications present. The hilar and mediastinal contours are within normal limits. SKELETAL STRUCTURES: The bony structures are within normal limits for the patient's age. VISUALIZED UPPER ABDOMEN: Normal. OTHER FINDINGS: None. IMPRESSION: No active pulmonary disease.
[2018-07-18 19:11] VITALS: BP 105/68; PULSE 71; TEMP 98; O2SAT 99
--- NOTE | 2018-07-19 09:57 | CARD ---
APPROVED REPORT Date of service: 07/18/2018 EKG Measurement Heart [id number] <Conclusion> Normal sinus rhythm Normal ECG
== END 2018-07-18 19:11 | disposition home or self-care (01) ==
LOC: H.ER 17:05
DX: R07.81 Pleurodynia (principal)
CPT/HCPCS: 71046; 81025; 84484; 93005; 96374; 99284; J1885